=== PATIENT | male | born 1970 | race Caucasian/White ===

== ENCOUNTER 2024-07-07 17:55 | Emergency (ER) | payer MEDICAID ==
[~2024-07-07] VITALS: Ht 190.5 cm; Wt 118.2 kg
[2024-07-07 19:03] VITALS: PULSE 117
[2024-07-07 19:23] LABS: APTT 26 SECONDS (22-32); INR 1.1 INR; PROTHROMBIN TIME 11.7 SECONDS (9.0-12.0)
[2024-07-07 19:25] LABS: ALANINE AMINOTRANSFERASE 39 U/L (12-78); ALBUMIN 3.8 G/DL (3.4-5.0); ALBUMIN/GLOBULIN RATIO 0.8 (1.1-1.5); ALKALINE PHOSPHATASE 47 IU/L (46-116); ANION GAP 13 (8-16); ASPARTATE AMINO TRANSFERASE 37 U/L (10-37); BASOPHILS # (AUTO) 0.1 X10'3 (0-0.2); BASOPHILS % (AUTO) 1.5 % (0-1); BILIRUBIN,TOTAL 0.5 MG/DL (0.1-1.0); BLOOD UREA NITROGEN 7 MG/DL (7-18); BUN/CREATININE RATIO 6.7 (10.0-20.0); CHLORIDE 108 MMOL/L (99-107); CREATININE 1.04 MG/DL (0.60-1.10); EOSINOPHILS # (AUTO) 0.3 X10'3 (0-0.9); EOSINOPHILS % (AUTO) 4.2 % (0-6); ETHANOL 272 MG/DL (<10); GLUCOSE 132 MG/DL (70-104); HEMATOCRIT 48.9 % (42.0-52.0); HEMOGLOBIN 16.7 g/dl (14.0-17.9); LIPASE 57 U/L (16-77); LYMPHOCYTES % (AUTO) 27.6 % (21-51); MEAN CORPUSCULAR HEMOGLOBIN 37.9 PG (27.0-31.0); MEAN CORPUSCULAR HGB CONC 34.2 g/dL (33.0-36.5); MEAN CORPUSCULAR VOLUME 110.8 FL (78-98); MEAN PLATELET VOLUME 9.3 FL (7.4-10.4); MONOCYTES # (AUTO) 0.5 X10'3 (0-0.9); MONOCYTES % (AUTO) 7.5 % (2-12); NEUTROPHILS # (AUTO) 4.2 X10'3 (1.8-7.7); NEUTROPHILS % (AUTO) 59.2 % (42-75); PLATELET COUNT 269 X10'3 (140-440); POTASSIUM 3.9 MMOL/L (3.5-5.1); RED BLOOD COUNT 4.41 X10'6 (4.70-6.10); RED CELL DISTRIBUTION WIDTH 18.7 % (11.5-14.5); SODIUM 141 MMOL/L (135-145); TOTAL CARBON DIOXIDE 20.5 MMOL/L (24-32); TOTAL PROTEIN 8.4 G/DL (6.4-8.2); WHITE BLOOD COUNT 7.1 X10'3 (4.5-11.0); eCRCL 96 ML/MIN; eGFR 74 ML/MIN
[2024-07-07 19:44] VITALS: BP 130/87; RESP 15; TEMP 98.5; O2SAT 97
[2024-07-07 20:35] LABS: ANISOCYTOSIS 2+; PLATELET ESTIMATE NORMAL; TOTAL CELLS COUNTED 100
[2024-07-07 20:36] LABS: POLYCHROMASIA 1+
== END 2024-07-07 19:46 | disposition home or self-care (01) ==
LOC: ER 17:55
DX: S20.212A Contusion of left front wall of thorax, initial encounter (principal); S19.9XXA Unspecified injury of neck, initial encounter; F17.200 Nicotine dependence, unspecified, uncomplicated; F10.129 Alcohol abuse with intoxication, unspecified; V89.2XXA Person injured in unspecified motor-vehicle accident, traffic, initial encounter; Y93.89 Activity, other specified; Y92.89 Other specified places as the place of occurrence of the external cause; Y99.8 Other external cause status; Y90.9 Presence of alcohol in blood, level not specified
CPT/HCPCS: 36415; 71045; 71250; 72040; 72125; 74176; 80053; 80320; 83605; 83690; 85007; 85025; 85610; 85730; 86885; 86900; 86901; 93005; 99285

== ENCOUNTER 2025-06-07 16:14 | Outpatient (CLI) | payer MEDICAID ==
--- NOTE | 2025-06-07 18:18 | RADIOLOGY REPORT ---
PROCEDURE: MR MRI LUMBAR SPINE INDICATION: SPONDYLOSIS WITHOUT MYELOPATHY OR RADICULOPATHY, SITE UNS Exam Date: 06/07/2025 04:47 PM COMPARISON: None TECHNIQUE: MRI lumbar spine without intravenous contrast. FINDINGS: Postsurgical changes L3-4 and L4-5. Grade 1 retrolisthesis of L3 on L4. There are degenerative endp late changes including modic endplate changes with anterior and lateral osteophytes throughout the shalini mbar spine. The visualized distal spinal cord and conus medullaris are within normal limits. The con us medullaris appears to terminate within normal limits. The visualized retroperitoneal and paraspin al soft tissues are unremarkable. The following axial levels are detailed below: T12-L1: There is a mild circumferential disc bulge. No significant central canal or neuroforaminal s tenosis. L1-L2: There is a mild circumferential disc bulge. No significant central canal or neuroforaminal s tenosis. L2-L3: There is a moderate circumferential disc bulge complicated by facet arthropathy associated w ith mild to moderate bilateral neuroforaminal stenosis. No significant central canal stenosis. L3-L4: There is a moderate circumferential disc bulge complicated by facet arthropathy associated w ith moderate to severe bilateral neuroforaminal stenosis. No significant central canal stenosis. L4-L5: There is a moderate circumferential disc bulge complicated by facet arthropathy associated w ith moderate to severe bilateral neuroforaminal stenosis. No significant central canal stenosis. L5-S1: There is a moderate circumferential disc bulge complicated by facet arthropathy associated wi th mild to moderate bilateral neuroforaminal stenosis. No significant central canal stenosis. IMPRESSION: 1. Multilevel moderate to advanced degenerative disease. Grade 1 retrolisthesis of L3 on L4. Postsurg ical changes L3-4 and L4-5. No significant central canal stenosis. Neural foraminal stenosis as abov e. HS:Y
== END 2025-06-07 23:59 | disposition home or self-care (01) ==
LOC: MRI02 16:14
PROVIDERS: ATTEND Family Medicine
DX: M51.17 Intervertebral disc disorders with radiculopathy, lumbosacral region (principal); M48.07 Spinal stenosis, lumbosacral region; M47.27 Other spondylosis with radiculopathy, lumbosacral region
CPT/HCPCS: 72148